=== PATIENT | male | born 1990 | race Hispanic/Latino ===

== ENCOUNTER 2021-07-03 07:50 | Outpatient (CLI) | payer BC ==
--- NOTE | 2021-07-03 11:04 | Magnetic Resonance Report ---
MRI RIGHT KNEE WITHOUT CONTRAST INDICATION / CLINICAL INFORMATION: M25.561 PAIN IN RIGHT KNEE. TECHNIQUE: Multiplanar, multisequence MR images were obtained. No contrast used. COMPARISON: None available. FINDINGS: ACL: No significant abnormality. PCL: No significant abnormality. DISTAL QUADRICEPS TENDON: No significant abnormality. PATELLAR TENDON: No significant abnormality. MEDIAL MENISCUS: No significant abnormality. LATERAL MENISCUS: No significant abnormality. MCL: No significant abnormality. LCL: No significant abnormality. DISTAL IT BAND: No significant abnormality. PATELLOFEMORAL ALIGNMENT: No significant abnormality. ARTICULAR CARTILAGE: Mild, early chondrosis central femoral trochlea. JOINT SPACE: No significant joint effusion or synovitis. No significant popliteal cyst. No intra-johanne cular bodies. BONES: No significant bone marrow edema. No fracture. 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 SOFT TISSUES: No significant abnormality. ADDITIONAL FINDINGS: Prominent subcutaneous superficial varicosities along the anterior medial aspect of the thigh. IMPRESSION: 1. Mild chondrosis central femoral trochlea. 2. Otherwise, no significant abnormality. No meniscal or ligament injury. Report dictated by: Vinny Chavez MD Report dictated on: 07/03/2021 9:14 AM I have reviewed the images, agree with this report, and edited this report as needed. Signer Name: Michelle Mckenna MD Signed: 07/03/2021 10:57 AM Workstation Name: [id number]
== END 2021-07-03 07:51 | disposition home or self-care (01) ==
LOC: MRI 07:50
PROVIDERS: ATTEND Orthopaedic Surgery
DX: M94.261 Chondromalacia, right knee (principal)
CPT/HCPCS: 73721